=== PATIENT | female | born 1985 | race Asian ===

== ENCOUNTER 2023-09-13 22:17 | Emergency (ER) | payer MEDICAID ==
[~2023-09-13] VITALS: Ht 167.6 cm; Wt 72.7 kg
[2023-09-13 22:37] VITALS: TEMP 98.2
[2023-09-14 00:25] VITALS: BP 139/88; PULSE 94; RESP 20
[2023-09-14] MEDS ORDERED: DOXY-354 PO (00:33)
[2023-09-14] MEDS ORDERED: CEPH-558 PO (00:33)
[2023-09-14 00:41] LABS: GLUCOMETER DEV NAME(LOC) ER.6; GLUCOSE,POINT OF CARE 94 MG/DL (70-110)
== END 2023-09-14 00:46 | disposition home or self-care (01) ==
LOC: EMS 22:21
DX: L03.811 Cellulitis of head [any part, except face] (principal); I10 Essential (primary) hypertension
CPT/HCPCS: 82962; 99283